=== PATIENT | female | born 1935 | race Hispanic/Latino ===

== ENCOUNTER 2021-04-26 00:50 | Emergency (ER) | payer OTHER, MEDICARE ==
[~2021-04-26] VITALS: Ht 160 cm; Wt 60.8 kg
[2021-04-26 01:06] VITALS: BP 153/77
[2021-04-26 01:20] LABS: HEMATOCRIT 34.2 % (36-48); LYMPHOCYTES % (AUTO) 9.2 % (21.0-51.0); MEAN CORPUSCULAR HEMOGLOBIN 27.6 pg (27.0-33.0); MEAN CORPUSCULAR HGB CONC 32.2 g/dL (32.0-36.0); MEAN CORPUSCULAR VOLUME 85.7 fL (79-99); MONOCYTES % (AUTO) 6.3 % (3.0-13.0); NEUTROPHILS % (AUTO) 83.9 % (40.0-77.0); PLATELET COUNT (AUTO) 306 K/uL (130-400); RED BLOOD CELL COUNT(AUTO) 3.99 MIL/uL (4.00-5.50); RED CELL DISTRIBUTION WIDTH 13.7 % (11.0-15.5); WHITE BLOOD COUNT (AUTO) 6.2 K/uL (4.8-10.8)
[2021-04-26 01:35] LABS: ALBUMIN 2.6 g/dL (3.5-5.0); BILIRUBIN,TOTAL 0.2 mg/dL (0.2-1.0); CREATININE 1.2 mg/dL (0.5-1.5); POTASSIUM 4.6 mmol/L (3.5-5.1); TOTAL PROTEIN, SERUM 6.9 g/dL (6.0-8.3)
[2021-04-26 01:44] LABS: INR 0.98 (0.85-1.15); PROTHROMBIN TIME 10.7 SEC (9.6-11.6)
[2021-04-26 01:45] LABS: PARTIAL THROMBOPLASTIN TIME 21.8 SEC (26.3-35.5)
[2021-04-26 01:52] LABS: B-TYPE NATRIURETIC PEPTIDE 102 pg/mL (0-100)
[2021-04-26] MEDS ORDERED: 0.9%NACL 1000ML 1,000 ML IV ONE ×2 (02:30→02:50)
[2021-04-26] MEDS ORDERED: INSULIN HUMULIN R 100 UNIT/ML 3ML IV ONE (02:30)
[2021-04-26] MEDS ORDERED: INSULIN HUMULIN R 100 UNIT/ML 3ML ONE (02:50)
[2021-04-26 06:23] VITALS: BP 126/70
== END 2021-04-26 08:42 ==
LOC: EDH 00:50
DX: E11.65 Type 2 diabetes mellitus with hyperglycemia (principal); E86.0 Dehydration; Z79.4 Long term (current) use of insulin
CPT/HCPCS: 36415; 71045; 80053; 82550; 82948 ×2; 83880; 84484; 85025; 85610; 85730; 93005; 96361; 96374; 99285; J1815; J7030